=== PATIENT | male | born 1960 | race Caucasian/White ===

== ENCOUNTER 2017-05-11 18:04 | Emergency (ER) | payer SELFPAY ==
[~2017-05-11] VITALS: Ht 170.2 cm; Wt 78.0 kg
[2017-05-11] MEDS ORDERED: KETOROLAC 60MG/2ML VIAL IM ONE (19:30)
[2017-05-11 20:31] VITALS: BP 129/76
== END 2017-05-11 20:34 | disposition home or self-care (01) ==
LOC: ER 18:18
DX: S60.051A Contusion of right little finger without damage to nail, initial encounter (principal); R07.89 Other chest pain; M79.641 Pain in right hand; V49.88XA Car occupant (driver) (passenger) injured in other specified transport accidents, initial encounter; Y93.89 Activity, other specified; Y92.89 Other specified places as the place of occurrence of the external cause; Y99.8 Other external cause status
CPT/HCPCS: 71045; 73000; 73130; 96372; 99284; J1885; Z7610